=== PATIENT | female | born 1990 | race African-American/Black ===

== ENCOUNTER 2017-08-20 23:12 | Emergency (ER) | payer OTHER ==
[~2017-08-20] VITALS: Ht 167.6 cm; Wt 81.6 kg
[~2017-08-20 23:12] MED LIST: HYDR-971 PO; NAPR500T4 PO; PROAIR HFA8.5 GM INH
[2017-08-20 23:44] VITALS: BP 132/91
[2017-08-21] MEDS ORDERED: AMOX875T PO (00:33)
--- NOTE | 2017-08-21 00:33 | PHYS DOC ---
Past Medical History Past Medical History: Asthma, Other Additional Past Medical Histor: 1ST DEGREE AV BLOCK Past Surgical History: Other Additional Past Surgical Histo: Hernia Alcohol Use: None Drug Use: None Adult General Chief Complaint Chief Complaint: SORE THROAT HPI HPI Patient is a 27 year old E male presents to the emergency department with complaints of sore throat for 2 days. Patient reports she's had upper respiratory symptoms for one week. She states that she has not measured fever but has had chills. No nausea, vomiting, no abdominal pain. Review of Systems Review of Systems Constitutional: As without measured fever Eyes: Denies change in visual acuity, redness, or eye pain [] HENT: Denies nasal congestion, complain of sore throat and left ear pain Respiratory: Off without shortness of breath Cardiovascular: No additional information not addressed in HPI [] GI: Denies abdominal pain, nausea, vomiting, bloody stools or diarrhea [] : Denies dysuria or hematuria [] Musculoskeletal: Denies back pain or joint pain [] Integument: Denies rash or skin lesions [] Neurologic: Denies headache, focal weakness or sensory changes [] Endocrine: Denies polyuria or polydipsia [] Allergies Allergies Allergies Coded Allergies Type Severity Reaction Last Updated Verified No Known Drug Allergies 06/04/14 No Physical Exam Physical Exam Constitutional: Well developed, well nourished, no acute distress, non-toxic appearance. [] HENT: Normocephalic, atraumatic, bilateral external ears normal, left tympanic membrane erythematous with effusion, oropharynx moist posterior pharynx erythematous with white exudate, uvula midline, no oral exudates, nose normal. [ ] Eyes: PERRLA, EOMI, conjunctiva normal, no discharge. [] Neck: Normal range of motion, no tenderness, supple without lymphadenopathy, no stridor. [] Cardiovascular:Heart rate regular rhythm, no murmur [] Lungs & Thorax: Bilateral breath sounds clear to auscultation [] Abdomen: Bowel sounds normal, soft, no tenderness, no masses, no pulsatile masses. [] Skin: Warm, dry, no erythema, no rash. [] Back: No tenderness, no CVA tenderness. [] Extremities: No tenderness, no cyanosis, no clubbing, ROM intact, no edema. [] Neurologic: Alert and oriented X 3, normal motor function, normal sensory function, no focal deficits noted. [] Psychologic: Affect normal, judgement normal, mood normal. [] Current Patient Data Vital Signs Vital Signs Date Time Temp Pulse Resp B/P (MAP) Pulse Ox O2 Delivery O2 Flow Rate FiO2 08/20/17 23:44 98.1 86 16 99 Room Air 98.1 Lab Values Rapid strep negative EKG EKG [] Radiology/Procedures Radiology/Procedures [] Course & Med Decision Making Course & Med Decision Making Pertinent Labs and Imaging studies reviewed. (See chart for details) [] Dragon Disclaimer Dragon Disclaimer This electronic medical record was generated, in whole or in part, using a voice recognition dictation system. Departure Departure Impression: Primary Impression: Otitis media Additional Impression: URI (upper respiratory infection) Disposition: HOME, SELF-CARE Condition: STABLE Referrals: NO PCP (PCP) [facility] Patient Instructions: Otitis Media, Adult, Upper Respiratory Infection, Adult Scripts Amoxicillin (AMOXICILLIN) 875 Mg Tablet 1 TAB PO BID, #20 TAB Prov: FRANCOISE GOSS APRN 08/21/17 Problem Qualifiers Primary Impression: Otitis media Otitis media type: serous Chronicity: acute Laterality: left Recurrence: not specified as recurrent Qualified Codes: H65.02 - Acute serous otitis media, left ear Additional Impression: URI (upper respiratory infection) URI type: acute pharyngitis Pharyngitis/tonsillitis etiology: unspecified etiology Qualified Codes: J02.9 - Acute pharyngitis, unspecified FRANCOISE GOSS APRN Aug 21, 2017 00:33
[2017-08-21 10:25] LABS: NEGATIVE OBC STREP NEG; POSITIVE OBC STREP POS
== END 2017-08-21 00:41 | disposition home or self-care (01) ==
LOC: ER 23:12
DX: J02.9 Acute pharyngitis, unspecified (principal); H65.02 Acute serous otitis media, left ear; J45.909 Unspecified asthma, uncomplicated
CPT/HCPCS: 87070; 87880; 99283

== ENCOUNTER 2020-06-12 11:10 | Emergency (ER) | payer SELFPAY ==
[~2020-06-12] VITALS: Ht 170.2 cm; Wt 90.0 kg
[~2020-06-12 11:10] MED LIST changes: +ALBU2.5V8 INH; +AMOX875T PO; +HYDR-3164 PO; -HYDR-971 PO; +NAPR-514 PO; -NAPR500T4 PO; -PROAIR HFA8.5 GM INH
[2020-06-12] MEDS ORDERED: predniSONE 10 MG TABLET PO ONE (11:45)
[2020-06-12] MEDS ORDERED: ALBUTEROL SULFATE 2.5 MG/3 ML NEBU. CONT NEB ONE (11:45)
--- NOTE | 2020-06-12 11:47 | PHYS DOC ---
Past Medical History Past Medical History: Asthma, Other Additional Past Medical Histor: 1ST DEGREE AV BLOCK Past Surgical History: Other Additional Past Surgical Histo: Hernia Smoking Status: Never Smoker Alcohol Use: None Drug Use: None General Adult EDM: Chief Complaint: ASTHMA HPI: HPI: Patient is a 30 year old female who presents with 1 month of chest tightness, cough, nasal congestion shortness of breath. She states she has been out of the job that she has not been able to get an inhaler. She states she does not take any medicines daily and she has not been taking medicines for her symptoms. She does have a history of asthma, allergies, first-degree block. Patient states that her discomfort is at an 8 out of 10. Patient states at times she will cough up yellow phlegm. Patient denies fever, chills, dizziness, syncope, headache, vision changes, nausea, vomiting, diarrhea, numbness or tingling, chest pain. Review of Systems: Review of Systems: Constitutional: Denies fever or chills. [] Eyes: Denies change in visual acuity. [] HENT: nasal congestion or denies sore throat. [] Respiratory: cough or shortness of breath. [] Cardiovascular: chest tightness or denies edema. [] GI: Denies abdominal pain, nausea, vomiting, bloody stools or diarrhea. [] : Denies dysuria. [] Musculoskeletal: Denies back pain or joint pain. [] Integument: Denies rash. [] Neurologic: Denies headache, focal weakness or sensory changes. [] Endocrine: Denies polyuria or polydipsia. [] Lymphatic: Denies swollen glands. [] Psychiatric: Denies depression or anxiety. [] Heart Score: Risk Factors: Risk Factors: DM, Current or recent (<one month) smoker, HTN, HLP, family history of CAD, obesity. Risk Scores: Score 0 - 3: 2.5% MACE over next 6 weeks - Discharge Home Score 4 - 6: 20.3% MACE over next 6 weeks - Admit for Clinical Observation Score 7 - 10: 72.7% MACE over next 6 weeks - Early Invasive Strategies Current Medications: Current Medications Medications (Trade) Dose Ordered Sig/Virgen Start Time Stop Time Status Last Admin Dose Admin Albuterol Sulfate (Ventolin Neb Soln) 10 mg 1X ONCE 06/12/20 11:45 06/12/20 11:46 Prednisone (Prednisone) 50 mg 1X ONCE 06/12/20 11:45 06/12/20 11:46 Allergies: Allergies: Allergies Coded Allergies Type Severity Reaction Last Updated Verified No Known Drug Allergies 06/04/14 No Physical Exam: PE: Constitutional: Well developed, well nourished, no acute distress, non-toxic appearance. [] HENT: Normocephalic, atraumatic, bilateral external ears normal, oropharynx moist, no oral exudates, nose normal. [] Eyes: PERRLA, EOMI, conjunctiva normal, no discharge. [] Neck: Normal range of motion, no tenderness, supple, no stridor. [] Cardiovascular:Heart rate regular rhythm, no murmur [] Lungs & Thorax: Bilateral upper breath sounds inspiratory and expiratory and diminished to auscultation [] Abdomen: Bowel sounds normal, soft, no tenderness, no masses, no pulsatile masses. [] Skin: Warm, dry, no erythema, no rash. [] Back: No tenderness, no CVA tenderness. [] Extremities: No tenderness, no cyanosis, no clubbing, ROM intact, no edema. [] Neurologic: Alert and oriented X 3, normal motor function, normal sensory function, no focal deficits noted. [] Psychologic: Affect normal, judgement normal, mood normal. [] EKG: EK and read by Dr Newby as Sinus Rhythm and no STEMI Radiology/Procedures: Radiology/Procedures: [] Impression: [facility] [address] [place], [place] [id number] IMAGING REPORT Signed PATIENT: CANDIDO LOMELI ACCOUNT: [id number] : 1990 LOCATION: ER AGE: 30 SEX: F EXAM STATUS: REG ER ORD. PHYSICIAN: REYES RIVERA APRN REASON: wheezing PROCEDURE: PORTABLE CHEST 1V INDICATION: Reason: wheezing / Spl. Instructions: / History: COMPARISON: None. FINDINGS: Single view of chest obtained. No focal airspace consolidation. Cardiomediastinal contour unremarkable. No acute osseous abnormality. IMPRESSION: * No focal airspace consolidation or edema. Electronically signed by: Cora Koo MD (06/12/2020 1:50 PM) [id number] DICTATED and SIGNED BY: CORA KOO MD DATE: 06/12/20 0436 Course & Med Decision Making: Course & Med Decision Making Pertinent Labs and Imaging studies reviewed. (See chart for details) COVID-19 CRITERIA: The patient was evaluated during the global COVID-19 pandemic, and that diagnosis was suspected/considered upon their initial presentation. Their evaluation, treatment and testing was consistent with current guidelines for patients who present with complaints or symptoms that may be related to COVID-19. See HPI. Alert and oriented x4. Lungs have inspiratory expiratory wheezing but also very diminished and tight. When she coughs it sounds loose in nature. Patient does speak in full complete sentences. She is 95% on room air. Skin pink warm and dry. Reevaluation patient's lungs are sounding better and she is moving air better. Patient states she is feeling much better. She is given a Medrol Dosepak, azithromycin, and inhaler she is to follow-up with primary care physician as soon as possible. [] Dragon Disclaimer: Dragon Disclaimer: This electronic medical record was generated, in whole or in part, using a voice recognition dictation system. COVID-19 Patient Risks: Age 65 or older: No Sign of co-morbidity: Yes Exp to person + for COVID: No Exp to PUI: No Travel from affected area: No Lower respiratory symptoms: Yes Fever: No Other: No PPE Use: Full PPE with N95 mask or PAPR: Yes Departure Departure Impression: Primary Impression: Asthma Qualified Codes: J45.30 - Mild persistent asthma, uncomplicated Additional Impression: Person under investigation for COVID-19 Disposition: 01 HOME, SELF-CARE Condition: STABLE Referrals: NO PCP (PCP) Patient Instructions: Asthma, Adult Additional Instructions: Follow-up with your primary care physician soon as possible. Get medications filled as soon as possible. Take medications as prescribed. If you begin having severe shortness of breath and chest pain return to the emergency room. You will be called with your COVID results in 48 hours. You have been tested for or diagnosed with COVID-19. It is an infection caused by a new type of coronavirus. COVID-19 will cause cold-like or mild flu symptoms in most. It can cause more severe symptoms like problems breathing in some. There is no treatment for COVID-19. The body will clear the infection over time. Self-care will help to ease discomfort. Steps to Take: Self-Care Rest as needed. Healthy habits may help you feel better. Steps include: Choose healthy foods including fruits and vegetables. Drink water throughout the day. Get plenty of sleep each night. If you smoke, try to quit. It may ease breathing. Avoid alcohol. Keep Others Healthy The virus can spread to others. Droplets are released every time you sneeze or cough. The droplets can get into the mouth, nose, or eyes of people near you and lead to infection. To lower the chances of spreading COVID-19 to others: Stay at home until your doctor has said it is safe to leave. If you tested positive this will mean staying isolated until both of the following are true: At least 7 days have passed since the start of illness. You are free of fever for at least 72 hours without the use of medicine. During this time: - Avoid public areas, events, or transportation. Do not return to work or school until your doctor has said it is safe to do so. - Call ahead if you need to go to a medical center. Let them know you may have COVID-19. It will help them guide you where to go. They may also ask you to wear a facemask when you come to the office. - If you call for emergency medical services, let them know you may have COVID- 19. While at home: - Try to avoid close contact with others. Stay about 6 feet away. - If possible, spend most of your time in a separate room from others. - Use a face mask if you will be in close contact with others such as sharing a room or vehicle. - Have someone wipe down common surfaces in the home. Use household computer network and systems engineer every day on areas like doorknobs, counters, or sinks. - Cough or sneeze into a tissue. Throw the tissue away right after use. If a tissue is not available, cough or sneeze into your elbow. - Wash your hands often. Wash them after sneezing or coughing. Use soap and water and wash for at least 20 seconds. Alcohol based hand lint cleaner can be used if soap and water is not available. - Do not prepare food for others. Avoid sharing personal items like forks, spoons, or toothbrushes. - Avoid close contact with pets while you are sick. There is no evidence of the virus passing to pets. This is a safety step until more is known about this virus. Isolation can be frustrating. Social interaction can help. Keep in touch with friends and family through phone and tech options. You can still interact with others in your home, just keep a safe distance of about 6 feet. Follow-up: Your doctors office will check in with you to see if there are any changes in your health. You may be asked to keep track of symptoms to share with them. They will also let you know when you are clear to be in public again. Problems to Look Out For: Contact your doctor if your recovery is not going as you expect. Get emergency care if you have problems such as: - Trouble breathing - Nonstop chest pain or pressure - Changes in awareness, confusion, or problems waking - Lips or face have bluish color - Worsening of symptoms If you think you have an emergency, call for emergency medical services right away. [facility] [place] [facility] [place] [facility] Script[facility] Azithromycin (AZITHROMYCIN TABLET) 250 Mg Tablet 1 PKG PO UD for 5 Days, #6 TAB 0 Refills 2 the first day followed by 1 for days 2-5 Prov: REYES RIVERA APRN 06/12/20 Albuterol Sulfate (PROAIR HFA INHALER) 8.5 Gm Hfa.aer.ad 1 PUFF INH PRN Q6HRS PRN for SHORTNESS OF BREATH, #1 INHALER 0 Refills Prov: REYES RIVERA APRN 06/12/20 Methylprednisolone (MEDROL) 4 Mg Tab.ds.pk 1 PKG PO UD, #1 PKG Prov: REYES RIVERA APRN 06/12/20 Justicifation of Admission Dx: Justifications for Admission: Justification of Admission Dx: N/A REYES RIVERA APRN Jun 12, 2020 11:47
[2020-06-12 12:10] VITALS: BP 129/87
--- NOTE | 2020-06-12 13:52 | RAD ---
INDICATION: Reason: wheezing / Spl. Instructions: / History: COMPARISON: None. FINDINGS: Single view of chest obtained. No focal airspace consolidation. Cardiomediastinal contour unremarkable. No acute osseous abnormality. IMPRESSION: * No focal airspace consolidation or edema. Electronically signed by: Oz Macias MD (06/12/2020 1:50 PM) [id number]
[2020-06-12] MEDS ORDERED: ALBU2.5V8 INH (13:58)
[2020-06-12] MEDS ORDERED: METH4TAB2 PO (13:58)
[2020-06-12] MEDS ORDERED: AZIT250T6 PO (13:58)
--- NOTE | 2020-06-13 15:02 | NUR ---
IP: Informed pt of negative COVID tests. Pt verbalized understanding.
--- NOTE | 2020-06-14 11:22 | EKG ---
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
== END 2020-06-12 14:40 | disposition home or self-care (01) ==
LOC: ER 11:10
DX: J45.30 Mild persistent asthma, uncomplicated (principal); Z20.828 Contact with and (suspected) exposure to other viral communicable diseases
CPT/HCPCS: 71045; 81025; 94644; 99285; J7512; U0003; 93005; J7613